=== PATIENT | female | born 1970 | race Caucasian/White ===

== ENCOUNTER 2017-01-05 21:25 | Observation (INO) | payer OTHER ==
[~2017-01-05] VITALS: Ht 167.6 cm; Wt 66.3 kg
[2017-01-05] MEDS ORDERED: NS 1,000 ML IV SCH (21:44)
[2017-01-05] MEDS ORDERED: MORPHINE 4 MG/ML 1ML SYRINGE IV ONE ×2 (21:45→22:30)
[2017-01-05 22:00] LABS: BASO % 0.8 % (0.0-1.0); EOS # 0.1 K/mm3 (0.0-0.50); EOS % 1.8 % (0.0-3.0); LARGE UNSTAINED CELL # 0.2 K/mm3 (0.0-0.4); LARGE UNSTAINED CELL % 2.3 % (0.0-4.0); LYMPH # 3.4 K/mm3 (1.5-4.5); LYMPH % 52.6 % (24.0-44.0); MEAN CORPUSCULAR VOLUME 94.2 fl (80.0-96.0); MONO # 0.3 K/mm3 (0.0-0.8); MONO % 4.7 % (0.0-5.0); NEUTROPHILS # 2.5 K/mm3 (1.8-7.7); NEUTROPHILS % 37.9 % (36.0-66.0); PLATELET COUNT, AUTOMATED 308 k/mm3 (150-450); RED CELL DISTRIBUTION WIDTH 12.8 % (11.5-14.5); WHITE BLOOD COUNT 6.6 K/mm3 (4.0-10.0)
[2017-01-05 22:12] LABS: ANION GAP 9 MEQ/L (8-16); BLOOD UREA NITROGEN 27 MG/DL (7-18); CALCIUM LEVEL 8.8 MG/DL (8.5-10.1); CARBON DIOXIDE LEVEL 24 MEQ/L (21-32); CHLORIDE LEVEL 107 MEQ/L (98-107); CREATININE FOR GFR 0.85 MG/DL (0.55-1.02); GLOMERULAR FILTRATION RATE > 60.0 (>58); GLUCOSE, FASTING 113 MG/DL (70-105); POTASSIUM SERUM 4.1 MEQ/L (3.5-5.1); SODIUM LEVEL 140 MEQ/L (136-145)
[2017-01-05] MEDS ORDERED: LIDOCAINE 1% MDV 20ML VIAL As Ordered ONE (22:43)
[2017-01-05] MEDS ORDERED: LIDOCAINE 1% MDV 20ML VIAL SC ONE (22:45)
[2017-01-05] MEDS ORDERED: LIDOCAINE 1% MDV INJ 50 ML VIAL SC ONE (22:45)
[2017-01-06] VITALS (9 sets, daily range): BP systolic 112–158; BP diastolic 72–99
[2017-01-06] MEDS ORDERED: ONDANSETRON 4MG/2ML VIAL (J2405) IV PRN ×2 (00:30→14:30)
[2017-01-06] MEDS: MORPHINE 4 MG/ML 1ML SYRINGE IV PRN ×6 (00:48→22:50)
--- NOTE | 2017-01-06 01:20 | REPUSA ---
CLINICAL HISTORY: Trauma. TECHNIQUE: Multiple axial CT images were obtained without IV contrast material. MPR coronal and sagit miguel sequences are obtained. COMMENTS: Moderately displaced comminuted displaced fractures of the medial, lateral and posterior malleoli. The fracture lines are noted reaching the articular surfaces. Soft tissue edema and swelling. Widening of the tibiotalar joint suggestive of significant ligamentous injury. Soft tissue swelling. IMPRESSION: Trimalleolar displaced fractures. Thank you for your kind referral of this patient.
[2017-01-06] MEDS ORDERED: PERCOCET 5MG/325MG TAB PO PRN ×2 (02:00→14:30)
[2017-01-06] MEDS: PERCOCET 5MG/325MG TAB PO PRN ×4 (02:16→18:26)
[2017-01-06] MEDS ORDERED: SLF 3 ML SYR IV PRN (03:00)
[2017-01-06] MEDS: SLF 3 ML SYR IV SCH ×3 (06:17→22:01)
[2017-01-06] MEDS ORDERED: CLINDAMYCIN 600 MG in APPROPRIATE DILUENT 1 EA IV SCH (06:45)
[2017-01-06] MEDS ORDERED: ASPI325T PO (06:52)
[2017-01-06] MEDS ORDERED: PERC5TAB6 PO (06:52)
--- NOTE | 2017-01-06 09:11 | REP ---
Pain after trauma. PRIORS: None. There is a trimalleolar fracture with posterior dislocation of the tibiotalar joint, which is subluxed laterally as well. There is extensive soft tissue swelling. IMPRESSION: Trimalleolar fracture with dislocation/subluxation and soft tissue swelling. Signed by Terrence Crockett DO 01/06/2017 09:26 A
--- NOTE | 2017-01-06 09:11 | REP ---
THREE VIEWS OF THE RIGHT FOOT: See the ankle report. There are no additional fractures. Signed by Terrence Crockett DO 01/06/2017 09:26 A
[2017-01-06] MEDS ORDERED: CLINDAMYCIN 600 MG/50 ML PREMIX BAG As Ordered ONE (12:05)
[2017-01-06] MEDS ORDERED: LIDOCAINE 2% INJ 100 MG/5 ML SDV (FOR ANES.) As Ordered ONE (12:29)
[2017-01-06] MEDS ORDERED: fentaNYL 100 MCG/2 ML INJECTION (J3010) As Ordered ONE (12:29)
[2017-01-06] MEDS ORDERED: PROPOFOL 500 MG/50 ML VIAL As Ordered ONE (12:29)
[2017-01-06] MEDS ORDERED: MIDAZOLAM INJ 2 MG/2 ML VIAL (J2250) As Ordered ONE (12:29)
[2017-01-06] MEDS ORDERED: fentaNYL 100 MCG/2 ML INJECTION (J3010) IV PRN (14:30)
[2017-01-06] MEDS ORDERED: HYDROmorphone HCL 1 MG/ML SYRINGE (J1170) IV PRN (14:30)
[2017-01-06] MEDS ORDERED: LR 1,000 ML IV SCH (14:30)
[2017-01-07] VITALS: BP 139/84
[2017-01-07] MEDS: PERCOCET 5MG/325MG TAB PO PRN ×3 (00:07→08:06)
[2017-01-07] MEDS: MORPHINE 4 MG/ML 1ML SYRINGE IV PRN ×2 (02:27→06:29)
[2017-01-07 04:00] VITALS: BP 137/81
[2017-01-07] MEDS: SLF 3 ML SYR IV SCH (05:19)
--- NOTE | 2017-01-07 06:39 | REP ---
Status post ORIF. Previous fracture/dislocation reviewed. Internal fixation plates and screws affix previously described trimalleolar fracture with dislocation. The alignment appears near anatomical. Overlying casting material obscures the bony detail. Signed by Terrence Crockett DO 01/07/2017 03:40 P
--- NOTE | 2017-01-07 06:45 | REP ---
Fluoroscopy for ORIF. Fluoro time 55 seconds. Previously described ankle trimalleolar fracture and dislocation has been reduced by internal fixation plate and multiple cancellous and cortical screws. The alignment is near anatomical. Signed by Terrence Crockett DO 01/07/2017 03:41 P
[2017-01-07 08:00] VITALS: BP 141/82
[2017-01-07] MEDS ORDERED: ASPIRIN 325 MG TAB PO SCH (09:00)
--- NOTE | 2017-01-07 12:56 | RO ---
DATE OF PROCEDURE: 01/06/2017 PREPROCEDURE DIAGNOSIS: Right trimalleolar ankle fracture. POSTPROCEDURE DIAGNOSIS: Right trimalleolar ankle fracture. PROCEDURE PERFORMED: Right ankle open reduction, internal fixation (ORIF). SURGEON: aBri Rothman MD SOAKER HELPER: JAGUAR Dotson ANESTHESIA PROVIDER: Dr. Loni Marcus ANESTHESIA: Spinal. ESTIMATED BLOOD LOSS: 10 mL TOURNIQUET TIME: Total time was 90 minutes at 250 mmHg of the right thigh. ANTIBIOTIC: 600 mg of IV clindamycin given one hour prior to incision. IMPLANTS USED: 8-hole Synthes one-third tubular plate for the fibular fixation. Synthes 5-hold one-third tubular plate for the posterior malleolus. A 40 and 44 mm partially threaded 4 mm cancellus screws for the medial malleolus. Screws used in the posterior malleolus were 34 mm and 28 mm, 3.5 Cortex screws. For the fibula, a 24 x 2.7 mm lag screw was used through the plate, three 14 mm x 3.5 mm Cortex screws used proximally, and one 18 mm x 4.0 fully threaded cancellus screw in the distal part of the fibula. INDICATION FOR PROCEDURE: Pearl Woods is a 46-year-old female who sustained a mechanical fall from standing in her home yesterday, resulting in a trimalleolar ankle fracture dislocation. She presented to the emergency department last night where I performed a closed reduction under intraarticular ankle block. Post reduction CT demonstrated trimalleolar ankle fracture with a posterior malleolar piece that was approximately 25% of the AP width of the distal tibia. Given the extent of the trimalleolar ankle fracture dislocation and the unstable nature of the fracture, discussed with the patient the risks, benefits, indications and alternatives and operative treatment recommended open reduction, internal fixation (ORIF) of the right ankle. I counseled the patient that I will be her operating surgeon, but she will likely be following up with local surgeons at [facility]. The patient expressed understanding of this arrangement and provided informed consent for right ankle open reduction, internal fixation (ORIF). INTRAOPERATIVE FINDINGS: Ankle syndesmosis was stable after trimalleolar fixation, precluding the need for any syndesmotic fixation. DESCRIPTION OF PROCEDURE: The patient was positively identified in the preoperative holding area. The surgical site was marked. She was given a single shot of spinal anesthesia by the anesthesia service for intraoperative and postoperative pain control. She was then brought to the operating room where she was placed in the prone position on the regular table with all bony prominences appropriately padded. Sequential compression device (SCD) was placed on the nonoperative extremity for deep vein thrombosis (DVT) prophylaxis. She was then prepped and draped in the usual sterile fashion. A final time-out was performed. The tourniquet was inflated. I made a [address] in between the lateral border of the Achilles tendon and posterior border of the fibula. I dissected through skin and subcutaneous tissue. Identified the small saphenous vein and the sural nerve, which were retracted medially and remained out of the field for the remainder of the case. Then identified the interval between the peroneus brevis and the flexor hallucis longus muscle and exploited this interval to identify the posterior border of the fibula. I dissected the FHL off the posterior border of the fibula and exposed the fibular fracture site. I cleared the fracture hematoma from the fracture site and obtained an anatomic reduction using a pointed reduction clamp. A posterior one-third tubular plate was placed in antiglide fashion. I placed a screw in the axilla and then placed a 2.7 mm lag by technique screw to maintain anatomic reduction. At this point, the fibula was reduced anatomically. I then turned my attention to the posterior malleolar fragment before filling in the remainder of the fibular screws to avoid obscuring my view. I continued to dissect the FHL muscle belly off the posterior tibia, identified the periosteum of the posterior malleolus. I dissected the posterior malleolus periosteally and identified the fracture fragment and was able to obtain anatomic reduction. I applied the 5-hole one-third tubular plate to use in buttress form and placed a single screw in the axilla, which resulted in anatomic reduction of the posterior malleolar fragment and then placed an additional screw bicortically superior to this for fixation of the posterior malleolar fragment and then turned my attention back to the fibula where two additional cortical screws and one cancellus screw were placed proximally and distally respectively to complete fixation of the fibular fracture. Obtained fluoroscopic views to confirm anatomic reduction of the fibula and posterior malleolus. I then turned my attention to the medial malleolus where a 5 cm curvilinear incision was made over the medial malleolus and dissected through skin and subcutaneous tissue. I identified the saphenous vein, which was retracted and protected through the entire case. I exposed the medial malleolar fracture and obtained an anatomic reduction using a dental pick. I then placed two guidewires into the anterior colliculus of the medial malleolus for placement of our 4 mm cannulated screws and confirmed adequate placement in the anterior caliculus and parallel to each other on mortise and lateral fluoroscopic views. I then used the opening drill for the screws and then placed a 40 mm and 44 mm short partially threaded cancellous screws noting anatomic reduction of the medial malleolar fragment. After anatomic reduction of the lateral, posterior and medial malleolar fragments, I performed a cotton pull test to confirm the syndesmosis was stable, which it was under fluoroscopic view. I obtained final fluoroscopic images and confirmed anatomic reduction of the ankle, mortise and syndesmosis. The wounds were then thoroughly irrigated with normal saline. The subcutaneous tissue was closed with #2-0 Vicryl suture and the skin was closed with running #3-0 nylon for the posterolateral incision and interrupted horizontal mattress suture of #3-0 nylon for the medial based wound. Sterile dressings were applied. The tourniquet was let down at 90 minutes. An L and U splint was applied. This ended the procedure. I was present and scrubbed in for all critical portions of the case. POSTOPERATIVE PLAN: The patient will be non-weight bearing to the right lower extremity. She will be discharged to home when discharge criteria are met. She will followup in the clinic with the [facility] in 10 to 14 days for wound check and suture removal. JEVON
--- NOTE | 2017-01-07 20:42 | HPE ---
DATE OF ADMISSION: 01/05/2017 CHIEF COMPLAINT/REASON FOR ADMISSION: Right ankle fracture. HISTORY OF PRESENT ILLNESS: Pearl Woods is a 46-year-old female who sustained a twisting injury to her right ankle after a mechanical fall from standing height at home, resulting in a trimalleolar right ankle fracture. She presented to the emergency department (ED ) for evaluation and orthopedics was consulted for management of her fracture. She denies any numbness, tingling or burning sensations distally about her right lower extremity, and has localized pain to the right ankle and has no other complaints. PAST MEDICAL HISTORY: None. MEDICATIONS: None. ALLERGIES: PENICILLIN causing rash. PAST SURGICAL HISTORY: Appendectomy. FAMILY HISTORY: Noncontributory. SOCIAL HISTORY: The patient lives in [place]. She is unemployed. She smokes 1/2 pack of cigarettes per day. Drinks socially. Does not use illicit drugs. REVIEW OF SYSTEMS: 14-point review of systems was reviewed and unremarkable. PHYSICAL EXAMINATION: VITAL SIGNS: Were reviewed and stable. GENERAL: This is a well-nourished female, appears her stated age, in no acute distress. NEUROLOGIC: She is awake, alert, and oriented to person, place and time. She has intact sensory and motor function in her right lower extremity tibial, sural, saphenous, superficial, peroneal, and deep peroneal nerve distributions. CARDIOVASCULAR: She has 2+ dorsalis pedis (DP) and posterior tibial (PT) pulses and brisk capillary refill all digits of the right lower extremity. MUSCULOSKELETAL: Focused exam of the right ankle demonstrates obvious visible deformity about the right ankle. She is tender diffusely about the right ankle with diffuse soft tissue swelling. She is able to flex and extend all toes independently on the right lower extremity. RADIOGRAPHS: Plain radiographs of the right ankle demonstrate a trimalleolar ankle fracture dislocation. ASSESSMENT: This is a 46-year-old female with a right trimalleolar ankle fracture dislocation. PLAN: I discussed with the patient the risks and complications and alternatives of operative versus nonoperative treatment of this injury. Given the unstable nature of this fracture dislocation, I recommend open reduction, internal fixation. I counseled the patient that I will be her operating surgeon, but she will likely be following up in the office with partners at the [facility]. The patient expressed understanding with this, and provided informed consent for right ankle open reduction, internal fixation. Given that her ankle is also acutely dislocated, she required a closed reduction and splinting prior to surgery, for which I performed an intra-articular ankle block, followed by a closed reduction and splinting of the right ankle. The patient will have a post-reduction CT scan of the right ankle for preoperative planning. We will plan for open reduction, internal fixation in the morning. She will be admitted to the hospital floor overnight for strict elevation of the right lower extremity and pain control. JEVON
== END 2017-01-07 11:35 | disposition home or self-care (01) ==
LOC: M ED 22:07 → M ED INP 22:49 → M PED 01-06 01:20
PROVIDERS: ADMIT Orthopaedic Surgery; ATTEND Orthopaedic Surgery
DX: S82.851A Displaced trimalleolar fracture of right lower leg, initial encounter for closed fracture (principal); Y92.099 Unspecified place in other non-institutional residence as the place of occurrence of the external cause; X50.0XXA Overexertion from strenuous movement or load, initial encounter; Z88.0 Allergy status to penicillin; F17.210 Nicotine dependence, cigarettes, uncomplicated
CPT/HCPCS: 27822; 73600; 73610; 73630; 73700; 80048; 85025; 93041; 96374; 96375; 96376; 97116; 99284; C1776; J2250; J2405; J3010

== ENCOUNTER → 2019-06-03 | Outpatient (CLI) | payer OTHER ==
[~2019-06-03] MED LIST: ASPI-1 PO; PERC5TAB12 PO
[2019-06-03 08:04] LABS: HEMATOCRIT 40.1 % (36.0-47.0); HEMOGLOBIN 13.4 g/dl (12.0-15.5); MEAN CORPUSCULAR HEMOGLOBIN 31.2 pg (27.0-33.0); MEAN CORPUSCULAR HGB CONC 33.4 g/dl (32.0-36.5); MEAN CORPUSCULAR VOLUME 93.3 fl (80.0-96.0); PLATELET COUNT, AUTOMATED 347 10^3/uL (150-450); WHITE BLOOD COUNT 6.2 10^3/uL (4.0-10.0)
[2019-06-03 08:30] LABS: ALBUMIN 4.1 GM/DL (3.2-5.2); ALT/SGPT 19 U/L (12-78); BILIRUBIN,TOTAL 0.2 MG/DL (0.2-1.0); BLOOD UREA NITROGEN 17 MG/DL (7-18); CALCIUM LEVEL 9.5 MG/DL (8.5-10.1); CARBON DIOXIDE LEVEL 27 MEQ/L (21-32); CHLORIDE LEVEL 107 MEQ/L (98-107); CHOLESTEROL LEVEL 230 MG/DL (<200); CHOLESTEROL RISK RATIO 3.194 (<5); CREATININE FOR GFR 0.74 MG/DL (0.55-1.30); GLOMERULAR FILTRATION RATE > 60.0 (>51); GLUCOSE, FASTING 77 MG/DL (70-100); HDL CHOLESTEROL 72 MG/DL (>40); LDL CHOLESTEROL 128 MG/DL (<100); NON-HDL-C 158 MG/DL; POTASSIUM SERUM 4.3 MEQ/L (3.5-5.1); RHEUMATOID FACTOR QUANT < 10.0 IU/ML (<15.0); SODIUM LEVEL 141 MEQ/L (136-145); TOTAL PROTEIN 7.2 GM/DL (6.4-8.2); TRIGLYCERIDES LEVEL 148 MG/DL (<150)
[2019-06-03 08:31] LABS: TOTAL 25(OH) VITAMIN D 21.2 NG/ML (30.0-100.0)
[2019-06-03 08:44] LABS: HEMOGLOBIN A1c 5.6 %
--- NOTE | 2019-06-03 09:24 | REP ---
Chest x-ray: Two views. History: Anemia, hypothyroid, fatigue, COPD. Comparison chest x-ray: February 27, 2016. Findings: The lungs are well inflated and free of infiltrate. The pleural angles are sharp. Heart size is normal. Pulmonary vasculature is not increased. No significant bony abnormality is seen. Impression: No active disease. Electronically Signed by Jaylan Amato MD 06/03/2019 09:15 A
== END ==
LOC: M LAB 07:06
PROVIDERS: ATTEND Family Medicine
DX: D64.9 Anemia, unspecified (principal)

== ENCOUNTER → 2019-06-19 | Outpatient (CLI) | payer OTHER ==
--- NOTE | 2019-06-19 07:48 | REP ---
Clinical: Sciatica. Technique: Neutral and frog lateral views of the right hip. Findings: Mild degenerative changes include increased sclerosis along the acetabular roof with subtle marginal spurring. Joint space is relatively normal. No acute fracture dislocation. Impression: Mild degenerative changes to the right hip. Electronically Signed by Stewart Barillas MD 06/19/2019 07:39 A
--- NOTE | 2019-06-19 07:49 | REP ---
Clinical: Right-sided sciatica. Technique: AP, lateral, bilateral oblique and coned-down views of the lumbosacral spine. Findings: Alignment and lordosis maintained. No acute fracture / compression injury or subluxation. No evidence for spondylolysis or spondylolisthesis. Examination is relatively age-appropriate and without significant degenerative changes appreciated. Impression: Age-appropriate examination. If the patient remains symptomatic consider MRI for further investigation. Electronically Signed by Stewart Barillas MD 06/19/2019 07:41 A
== END ==
LOC: M RAD 07:03
PROVIDERS: ATTEND Family Medicine
DX: M54.5 Low back pain (principal); M25.551 Pain in right hip

== ENCOUNTER → 2022-11-02 | Outpatient (CLI) | payer SELFPAY ==
[2022-11-02 09:02] LABS: HEMOGLOBIN 12.9 g/dl (12.0-15.5); MEAN CORPUSCULAR HEMOGLOBIN 31.4 pg (27.0-33.0); MEAN CORPUSCULAR HGB CONC 33.1 g/dl (32.0-36.5); MEAN CORPUSCULAR VOLUME 94.9 fl (80.0-96.0); PLATELET COUNT, AUTOMATED 318 10^3/uL (150-450); RED BLOOD COUNT 4.11 10^6/uL (4.00-5.40); WHITE BLOOD COUNT 5.4 10^3/uL (4.0-10.0)
[2022-11-02 09:19] LABS: ALBUMIN 3.9 G/DL (3.2-5.2); ALKALINE PHOSPHATASE 75 U/L (46-116); ALT/SGPT 18 U/L (7.0-40); AST/SGOT 18 U/L (<34); BILIRUBIN,TOTAL 0.4 MG/DL (0.3-1.2); BLOOD UREA NITROGEN 19 MG/DL (9-23); CALCIUM LEVEL 9.1 MG/DL (8.5-10.1); CARBON DIOXIDE LEVEL 27 MMOL/L (20-31); CHLORIDE LEVEL 111 MMOL/L (98-107); CHOLESTEROL LEVEL 208 MG/DL (<200); CHOLESTEROL RISK RATIO 2.82 (<5); CREATININE FOR GFR 0.66 MG/DL (0.55-1.30); GLOMERULAR FILTRATION RATE > 60.0 (>51); GLUCOSE, FASTING 87 MG/DL (60-100); HDL CHOLESTEROL 73.7 MG/DL (>40); LDL CHOLESTEROL 117.7 MG/DL (<100); NON-HDL-C 134 MG/DL; POTASSIUM SERUM 4.6 MMOL/L (3.5-5.1); SODIUM LEVEL 142 MMOL/L (136-145); TOTAL PROTEIN 6.7 G/DL (5.7-8.2); TRIGLYCERIDES LEVEL 83 MG/DL (<150)
[2022-11-02 09:21] LABS: THYROID STIMULATING HORMONE 1.925 uIU/ML (0.55-4.78); TOTAL 25(OH) VITAMIN D 17.1 NG/ML (20.0-100.0)
[2022-11-02 09:28] LABS: HEMOGLOBIN A1c 5.2 % (4.0-6.0)
== END ==
LOC: M RAD 06:26
PROVIDERS: ATTEND Family Medicine
DX: J44.9 Chronic obstructive pulmonary disease, unspecified (principal); I10 Essential (primary) hypertension; D64.9 Anemia, unspecified

== ENCOUNTER 2024-06-01 13:20 | Emergency (ER) | payer MEDICAID, SELFPAY ==
[~2024-06-01] VITALS: Ht 170.2 cm; Wt 59.3 kg
[2024-06-01 16:25] LABS: BASO # 0.1 10^3/uL (0.0-0.2); BASO % 1.3 % (0.0-1.0); EOS # 0.1 10^3/uL (0.0-0.5); EOS % 1.7 % (0.0-3.0); HEMOGLOBIN 13.3 g/dl (12.0-15.5); LYMPH # 2.3 10^3/uL (1.5-5.0); LYMPH % 32.7 % (24.0-44.0); MEAN CORPUSCULAR HEMOGLOBIN 31.8 pg (27.0-33.0); MEAN CORPUSCULAR HGB CONC 34.1 g/dl (32.0-36.5); MEAN CORPUSCULAR VOLUME 93.3 fl (80.0-96.0); MONO # 0.4 10^3/uL (0.0-0.8); MONO % 5.5 % (2.0-8.0); NEUTROPHILS # 4.2 10^3/uL (1.5-8.5); NEUTROPHILS % 58.5 % (36.0-66.0); PLATELET COUNT, AUTOMATED 363 10^3/uL (150-450); RED BLOOD COUNT 4.18 10^6/uL (4.00-5.40); WHITE BLOOD COUNT 7.1 10^3/uL (4.0-10.0)
[2024-06-01] MEDS: NS 1,000 ML IV ONE (16:45)
[2024-06-01] MEDS: KETOROLAC 30 MG/ML 1ML VIAL IV ONE (16:45)
[2024-06-01 16:54] LABS: ERYTHROCYTE SEDIMENTATION RATE 49 mm/hr (0-30)
[2024-06-01 16:58] LABS: ALBUMIN 3.9 G/DL (3.2-5.2); ALKALINE PHOSPHATASE 90 U/L (46-116); ALT/SGPT 17 U/L (7.0-40); AST/SGOT 14 U/L (<34); BILIRUBIN,DIRECT < 0.1 MG/DL (<0.4); BILIRUBIN,TOTAL 0.3 MG/DL (0.3-1.2); BLOOD UREA NITROGEN 21 MG/DL (9-23); CARBON DIOXIDE LEVEL 24 MMOL/L (20-31); CHLORIDE LEVEL 108 MMOL/L (98-107); CREATININE FOR GFR 0.93 MG/DL (0.55-1.30); GLOMERULAR FILTRATION RATE > 60.0 (>51); GLUCOSE, FASTING 156 MG/DL (60-100); POTASSIUM SERUM 4.1 MMOL/L (3.5-5.1); SODIUM LEVEL 140 MMOL/L (136-145); TOTAL PROTEIN 7.3 G/DL (5.7-8.2)
[2024-06-01 17:04] LABS: MONO REFLEX EBV COMP NEGATIVE (NEGATIVE)
[2024-06-01 17:05] LABS: PROCALCITONIN 0.07 ng/ml
[2024-06-01] MEDS ORDERED: ISOVUE-370 76% 100ML VIAL As Ordered ONE (17:33)
[2024-06-01 18:23] VITALS: BP 134/75; TEMP 97; O2SAT 98
[2024-06-01] MEDS ORDERED: CLEO300C2 PO (19:11)
[2024-06-01] MEDS: NORCO, ANEXSIA 5/325MG TABLET (HYDROcodone/ACETAMINOPHEN) PO ONE (19:17)
[2024-06-01] MEDS: CLINDAMYCIN 150MG CAPSULE PO ONE (19:17)
[2024-06-04 13:17] LABS: EBV VIRAL CAPSID AG IGM < 36.00 U/mL (<36.00)
== END 2024-06-01 19:20 | disposition home or self-care (01) ==
LOC: M ED 13:20
DX: K11.3 Abscess of salivary gland (principal); F17.210 Nicotine dependence, cigarettes, uncomplicated; Z88.0 Allergy status to penicillin; Z88.1 Allergy status to other antibiotic agents; Z79.2 Long term (current) use of antibiotics
CPT/HCPCS: 70491; 80048; 80076; 83605; 84145; 85025; 85652; 86140; 86308; 86664; 86665; 87040; 96374; 99284; J1885; Q9967

== ENCOUNTER → 2024-06-29 | Outpatient (CLI) | payer SELFPAY ==
[~2024-06-29] MED LIST changes: +CLEO300C2 PO; +LIDOCAINE 1% MDV 20ML VIAL As Ordered ONE
[2024-06-29 13:53] VITALS: TEMP 98.2
[2024-06-29 14:25] VITALS: BP 170/100; O2SAT 99
== END ==
LOC: M IRPRO 13:10
PROVIDERS: ATTEND Otolaryngology
DX: R22.1 Localized swelling, mass and lump, neck (principal); K11.20 Sialoadenitis, unspecified

== ENCOUNTER → 2024-07-23 | Outpatient (CLI) | payer MEDICAID ==
[~2024-07-23] MED LIST changes: -LIDOCAINE 1% MDV 20ML VIAL As Ordered ONE; +propofoL 200 MG/20 ML VIAL As Ordered ONE
[2024-07-23 09:34] LABS: HEMATOCRIT 39.4 % (36.0-47.0); HEMOGLOBIN 13.1 g/dl (12.0-15.5); MEAN CORPUSCULAR HGB CONC 33.2 g/dl (32.0-36.5); MEAN CORPUSCULAR VOLUME 96.1 fl (80.0-96.0); PLATELET COUNT, AUTOMATED 373 10^3/uL (150-450); WHITE BLOOD COUNT 5.6 10^3/uL (4.0-10.0)
[2024-07-23 10:04] LABS: ALKALINE PHOSPHATASE 74 U/L (35-104); ALT/SGPT 12 U/L (7.0-40); AST/SGOT 9 U/L (<34); BILIRUBIN,TOTAL 0.3 MG/DL (0.3-1.2); BLOOD UREA NITROGEN 24 MG/DL (9-23); CALCIUM LEVEL 9.7 MG/DL (8.5-10.1); CARBON DIOXIDE LEVEL 28 MMOL/L (20-31); CHLORIDE LEVEL 112 MMOL/L (98-107); CHOLESTEROL LEVEL 232 MG/DL (<200); CHOLESTEROL RISK RATIO 3.06 (<5); CREATININE FOR GFR 0.65 MG/DL (0.55-1.30); GLOMERULAR FILTRATION RATE > 60.0 (>51); GLUCOSE, FASTING 82 MG/DL (60-100); HDL CHOLESTEROL 75.7 MG/DL (>40); LDL CHOLESTEROL 134.7 MG/DL (<100); NON-HDL-C 156.3 MG/DL; POTASSIUM SERUM 4.5 MMOL/L (3.5-5.1); SODIUM LEVEL 143 MMOL/L (136-145); TOTAL PROTEIN 7.3 G/DL (5.7-8.2); TRIGLYCERIDES LEVEL 108 MG/DL (<150)
[2024-07-23 10:08] LABS: HEMOGLOBIN A1c 5.2 % (4.0-6.0)
== END ==
LOC: M RAD 06:59
PROVIDERS: ATTEND Family Medicine
DX: I10 Essential (primary) hypertension (principal); J44.9 Chronic obstructive pulmonary disease, unspecified

== ENCOUNTER 2024-07-28 20:25 | Emergency (ER) | payer OTHER ==
[~2024-07-28] VITALS: Ht 170.2 cm; Wt 63.2 kg
[~2024-07-28 20:25] MED LIST changes: -propofoL 200 MG/20 ML VIAL As Ordered ONE
[2024-07-28] MEDS ORDERED: ISOVUE-370 76% 100ML VIAL As Ordered ONE (21:16)
[2024-07-28 21:40] LABS: BASO # 0.1 10^3/uL (0.0-0.2); BASO % 1.2 % (0.0-1.0); EOS # 0.3 10^3/uL (0.0-0.5); EOS % 3.6 % (0.0-3.0); HEMATOCRIT 35.6 % (36.0-47.0); HEMOGLOBIN 12.3 g/dl (12.0-15.5); LYMPH # 3.9 10^3/uL (1.5-5.0); LYMPH % 44.2 % (24.0-44.0); MEAN CORPUSCULAR HEMOGLOBIN 31.9 pg (27.0-33.0); MEAN CORPUSCULAR HGB CONC 34.6 g/dl (32.0-36.5); MEAN CORPUSCULAR VOLUME 92.2 fl (80.0-96.0); MONO # 0.4 10^3/uL (0.0-0.8); MONO % 4.9 % (2.0-8.0); NEUTROPHILS # 4.1 10^3/uL (1.5-8.5); NEUTROPHILS % 45.9 % (36.0-66.0); PLATELET COUNT, AUTOMATED 339 10^3/uL (150-450); RED BLOOD COUNT 3.86 10^6/uL (4.00-5.40); WHITE BLOOD COUNT 8.8 10^3/uL (4.0-10.0)
[2024-07-28 21:44] LABS: INR 0.85; PARTIAL THROMBOPLASTIN TIME 26.5 SECONDS (24.8-34.2); PROTHROMBIN TIME 11.9 SECONDS (12.5-14.5)
[2024-07-28 21:45] LABS: ETHYL ALCOHOL (ETHANOL) 0.105 % (0.000-0.010)
[2024-07-28 21:47] LABS: BLOOD UREA NITROGEN 21 MG/DL (9-23); CALCIUM LEVEL 9.6 MG/DL (8.5-10.1); CARBON DIOXIDE LEVEL 25 MMOL/L (20-31); CHLORIDE LEVEL 108 MMOL/L (98-107); CREATININE FOR GFR 0.87 MG/DL (0.55-1.30); GLOMERULAR FILTRATION RATE > 60.0 (>51); GLUCOSE, FASTING 90 MG/DL (60-100); POTASSIUM SERUM 3.9 MMOL/L (3.5-5.1); SODIUM LEVEL 144 MMOL/L (136-145)
[2024-07-28] MEDS: METOCLOPRAMIDE INJ 10MG/2ML VIAL IV ONE (22:24)
[2024-07-28] MEDS: KETOROLAC 30 MG/ML 1ML VIAL IV ONE (22:25)
[2024-07-28] MEDS: MAG SULF 1GM/100ML (MAG RUN) 1 GM in IV 1 EA IV ONE (22:26)
[2024-07-28] MEDS ORDERED: AMIT10TA7 PO (22:49)
[2024-07-28 23:28] VITALS: BP 108/56; TEMP 96.8; O2SAT 95
== END 2024-07-28 23:33 | disposition home or self-care (01) ==
LOC: M ED 20:25 → EDBD 20:25 → M ED 23:33
DX: G43.909 Migraine, unspecified, not intractable, without status migrainosus (principal); M85.88 Other specified disorders of bone density and structure, other site; M51.360 Other intervertebral disc degeneration, lumbar region with discogenic back pain only; F17.200 Nicotine dependence, unspecified, uncomplicated; F10.10 Alcohol abuse, uncomplicated; Z90.49 Acquired absence of other specified parts of digestive tract; Z88.0 Allergy status to penicillin; Z88.1 Allergy status to other antibiotic agents; Z88.2 Allergy status to sulfonamides; Z79.899 Other long term (current) drug therapy
CPT/HCPCS: 70450; 70496; 70498; 70551; 71045; 80047; 80048; 82077; 85025; 85610; 85730; 93005; 93041; 94760; 96365; 96375; 99285; J1100; J1885; J2765; J3475; Q9967

== ENCOUNTER 2025-06-04 12:01 | Emergency (ER) | payer OTHER ==
[~2025-06-04] VITALS: Ht 170.2 cm; Wt 63.8 kg
[~2025-06-04 12:01] MED LIST changes: +AMIT10TA11 PO
[2025-06-04 13:19] VITALS: BP 166/89; TEMP 98; O2SAT 98
[2025-06-04] MEDS ORDERED: GABA-1172 PO (13:42)
[2025-06-04] MEDS ORDERED: MEDR4PAK PO (13:42)
== END 2025-06-04 14:01 | disposition home or self-care (01) ==
LOC: M ED 12:01
DX: M79.632 Pain in left forearm (principal); Z88.0 Allergy status to penicillin; Z88.1 Allergy status to other antibiotic agents; Z88.2 Allergy status to sulfonamides; Z88.8 Allergy status to other drugs, medicaments and biological substances; Z79.2 Long term (current) use of antibiotics; Z79.899 Other long term (current) drug therapy